=== PATIENT | female | born 1950 | race Caucasian/White ===

== ENCOUNTER → 2020-01-25 | Outpatient (CLI) | payer MEDICARE, MEDICAID ==
[2020-01-25 07:52] LABS: BILIRUBIN,URINE NEGATIVE (NEGATIVE); CLARITY,URINE CLEAR; COLOR,URINE YELLOW; GLUCOSE, URINE (UA) NEGATIVE (NEGATIVE); KETONES,URINE NEGATIVE (NEGATIVE); LEUKOCYTE ESTERASE ,URINE 1+ (NEGATIVE); NITRITE,URINE NEGATIVE (NEGATIVE); PROTEIN,URINE NEGATIVE (NEGATIVE)
[2020-01-25 08:25] LABS: BACTERIA,URINE TRACE /HPF
== END ==
LOC: LAB 07:32
PROVIDERS: ATTEND Thoracic Surgery (Cardiothoracic Vascular Surgery)
DX: Z01.812 Encounter for preprocedural laboratory examination (principal); I65.23 Occlusion and stenosis of bilateral carotid arteries
CPT/HCPCS: 81000

== ENCOUNTER 2020-06-10 00:23 | Emergency (ER) | payer MEDICARE, MEDICAID ==
[~2020-06-10] VITALS: Ht 170 cm; Wt 59.0 kg
--- OUTSIDE RECORDS SUMMARY | 2020-06-10 00:28 | XMS REPORT ---
Author Author Felicia SOLIZ Organization [employer] Address Unknown Phone Unavailable Care Team Providers Care Cytology Manager Name Role Phone BRITTANY SOLIZ CP Unavailable Allergies, Adverse Reactions, Alerts Substance Reaction Event Type N.K.D.A. Info Not Available Non Drug Allergy Problems Problem Type Condition Code Onset Dates Condition Statu s Assessment Rotator cuff injury, left, initial encounter S46.002A Active Medications Medication Code System Code Instructions Start Date End Date Status Dosage Dulcolax Stool Softener [facility] [address] 100 MG Orally Once a day 1 capsule as needed Ibuprofen [facility] [address]-34 800 MG Orally Three times a day Jun 29, 2016 1 tablet Amlodipine Besylate [facility] [address]-45 5 MG Orally Once a day 1 tablet ProAir HFA [facility] [address]-37 108 (90 Base) MCG/ACT Inhalation every 4 hrs 2 puffs as needed Dulera [facility] [address]-72 200-5 MCG/ACT Inhalation Twice a day 2 puffs Spiriva HandiHaler [facility] [address]-87 18 MCG Inhalation not defined Pravastatin Sodium [facility] [address]-63 40 MG Orally Once a day 1 tablet Procedures Procedure Coding System Code Date Office Visit, Est Pt., Level 3 CPT-4 66391 A 2015 Vital Signs Date/Time: Jun 29, 2016 Cardiac Monitoring Heart Rate 102 bpm Weight 163.1 lbs Height 65.5 in BMI 26.73 Index Blood Pressure Diastolic 80 mmHg Blood Pressure Systolic 144 mmHg Results No Known Results Summary Purpose [employer] Submission
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
--- OUTSIDE RECORDS SUMMARY | 2020-06-10 00:28 | XMS REPORT ---
Author Felicia Luke Organization [employer] Address Unknown Phone Unavailable Care Team Providers Care Saw Offbearer Name Role Phone SETH CHEN CP Unavailable Allergies, Adverse Reactions, Alerts Substance Reaction Event Type N.K.D.A. Info Not Available Non Drug Allergy Problems Problem Type Condition Code Onset Dates Condition Statu s Assessment Constipation, unspecified constipation type K59.00 Active Medications Medication Code System Code Instructions Start Date End Date Status Dosage Spiriva HandiHaler [facility] [address]-50 18 MCG Inhalation not defined Dulcolax Stool Softener [facility] [address]65[address] 100 MG Orally Once a day 1 capsule as needed Amlodipine Besylate [facility] [address]-75 5 MG Orally Once a day 1 tablet Dulera [facility] [address]-28 200-5 MCG/ACT Inhalation Twice a day 2 puffs ProAir HFA [facility] [address]-77 108 (90 Base) MCG/ACT Inhalation every 4 hrs 2 puffs as needed Pravastatin Sodium [facility] [address]-76 40 MG Orally Once a day 1 tablet Procedures Procedure Coding System Code Date Office Visit, Est Pt., Level 3 CPT-4 67462 [facility] 2015 Vital Signs Date/Time: June 12, 2016 Cardiac Monitoring Heart Rate 99 bpm Weight 165.1 lbs Height 65.5 in Blood Pressure Diastolic 90 mmHg Blood Pressure Systolic 146 mmHg Results No Known Results Summary Purpose [employer] Submission
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
--- OUTSIDE RECORDS SUMMARY | 2020-06-10 00:28 | XMS REPORT | Continuity of Care Document ---
Author Organization Unknown Address Unknown Phone Unavailable Allergies There is no data. Medications There is no data. Problems Date Dx Coded Attending Type Code Diagnosis Diagnosed By 01/27/2020 AMANDA DOBBS MD, Ot I65. 23 OCCLUSION AND STENOSIS OF BILATERAL TERRY 01/27/2020 AMANDA DOBBS MD, Ot Z01.812 ENCOUNTER FOR PREPROCEDURAL LABORATORY E 02/17/2020 AMANDA DOBBS MD, Ot I65. 23 OCCLUSION AND STENOSIS OF BILATERAL TERRY 02/17/2020 AMANDA DOBBS MD, Ot Z01.812 ENCOUNTER FOR PREPROCEDURAL LABORATORY E Procedures There is no data. Results Test Result Range Complete urinalysis with reflex to cultu re - 01/25/20 07:48 Urine color determination YELLOW NRG Urine clarity determination CLEAR NR G Urine pH measurement by test strip 6.0 5-9 Specific gravity of urine by test strip 1.020 1.016-1.022 Urine protein assay by test strip, semi-quantitative NEGATIVE NEGATIVE Urine glucose detection by automated test strip NE GATIVE NEGATIVE Erythrocytes detection in urine sediment by light micr oscopy NEGATIVE NEGATIVE Urine ketones detection by automated test strip NE GATIVE NEGATIVE Urine nitrite detection by test strip NEGATIVE NEGATIVE Urine total bilirubin detection by test strip NEGA TIVE NEGATIVE Urine urobilinogen measurement by automated test strip (mass/volume) 0.2 mg/dL < = 1.0 Urine leukocyte esterase detection by dipstick 1+ NEGATIVE Automated urine sediment erythrocyte cou nt by microscopy (number/high power field) NONE NRG Automated urine sediment leukocyte count by microscopy (number/high power field) [HPF] NRG Bacteria detection in urine sediment by light microsco py TRACE NRG Squamous epithelial cells detection in u rine sediment by light microscopy 2-5 NRG Crystals detection in urine sediment by light microsco py NONE NRG Casts detection in urine sediment by light microscopy NONE NRG Mucus detection in urine sediment by light microscopy SMALL NRG Complete urinalysis with reflex to culture NO NRG Encounters ACCT No. Visit Date/Time Discharge Status Pt. Type Provider Facility Loc./Unit Complaint [id number] 01/25/2020 07:32:00 020 23:59:59 CLS Outpatient AMANDA DOBBS MD [facility] LAB PREOP CARDIOVASCULAR [id number] 06/10/2020 00:24:[address] Emergency FRANSISCO CLEMENTS, TARA Ortiz [facility] ER SYCOPE
--- OUTSIDE RECORDS SUMMARY | 2020-06-10 00:28 | XMS REPORT ---
Author Author Felicia BILL [facility] Address [address] [place] [address] Care Team Providers Care Service Operator Name Role Phone LANDY ALISON Unavailable PROBLEMS Type Condition ICD9-CM Code KHF09-SZ Code Onset Dates Condition S tatus SNOMED Code Problem Mixed hyperlipidemia E78.2 Active 951730614 Problem Benign essential hypertension I10 Active 8766463 Problem COPD exacerbation J44.1 Active 19 7551773 Problem COPD, severe J44.9 Active 0669787 06 Problem Simple chronic bronchitis J41.0 Acti ve [id number] ALLERGIES No Information ENCOUNTERS Encounter Location Date Diagnosis [facility] [address] [id number] [phone] Jan, [facility] [place] [address] [facility] [address] [id number] [phone] Jan, [facility] [place]SC[place] [address] [facility] [id number], [place] [phone] Jun, [facility] [place] [address] [facility] [id number] [phone] Feb, Bronchitis J40 ; Wheezing R06.2 and Acut e upper respiratory infection, unspecified J06.9 [facility] [address] [facility] [address] [id number][place] [phone] Feb, [facility] [address] [facility] [address] [id number][place] [phone] Feb, COPD exacerbation J44.1 [facility] [address] [facility] [address] [id number][place] [phone] Feb, [facility]ITAL[facility] [address] [id number], [place] [phone] Dec, COPD exacerbation J44.1 [facility] [address] [place] [address] AVE [id number][place] [id number] Dec, COPD exacerbation J44.1 [facility] [address] [place] [address] AVE [id number][place] [phone] Dec, [facility] [address] [id number][place] [id number] Dec, COPD exacerbation J44.1 ; Tobacco abuse Z72.0 ; Tobacco abuse counseling Z71.6 ; Benign essential hypertension I10 ; COPD, severe J44.9 and Mixed hyperlipidemia E78.2 [facility] [address] [place] [address] AVE [id number][place] [id number] Sep, COPD exacerbation J44.1 [facility] [address] [place] [address] AVE [id number][place] [phone] Jun, Rotator cuff injury, left, initial encou nter S46.002A [facility] [address] [id number][place] [id number] May, Constipation, unspecified constipation t ype K59.00 [facility] [address] [id number], [place] [id number] March, Bronchitis J40 and Cough R05 IMMUNIZATIONS No Known Immunizations SOCIAL HISTORY Never Assessed REASON FOR VISIT only PLAN OF CARE VITAL SIGNS MEDICATIONS Unknown [...]
--- OUTSIDE RECORDS SUMMARY | 2020-06-10 00:28 | XMS REPORT ---
Author Author Felicia CONTRERAS Organization [facility] Address Unknown Phone Unavailable Care Team Providers Care Plasterer Journeyman Name Role Phone WALKER CONTRERAS Unavailable Unavailable PROBLEMS Type Condition ICD9-CM Code ZFO49-YV Code Onset Dates Condition S tatus SNOMED Code Problem Mixed hyperlipidemia E78.2 Active 851715479 Problem Benign essential hypertension I10 Active 5061044 Problem COPD exacerbation J44.1 Active 19 6209233 Problem COPD, severe J44.9 Active 0379839 06 Problem Simple chronic bronchitis J41.0 Acti ve [id number] ALLERGIES No Information SOCIAL HISTORY Never Assessed PLAN OF CARE VITAL SIGNS MEDICATIONS Unknown [...]
[2020-06-10] MEDS ORDERED: LACTATED RINGERS 1,000 ML IV ONE (00:44)
[2020-06-10] MEDS ORDERED: LACTATED RINGERS 1,000 ML IV STA (00:45)
[2020-06-10] MEDS ORDERED: ONDANSETRON 4 MG/2 ML (SDV) Z0FRAN IVP ONE (00:45)
[2020-06-10 00:55] LABS: BASOPHILS % (AUTO) 0 % (0-10); EOSINOPHILS # (AUTO) 0.2 10^3/uL (0.0-0.3); EOSINOPHILS % (AUTO) 2 % (0-10); HEMATOCRIT 41 % (35-52); HEMOGLOBIN 14.3 G/DL (11.5-16.0); LYMPHOCYTES # (AUTO) 2.6 X 10^3 (1.0-4.0); LYMPHOCYTES % (AUTO) 28 % (12-44); MEAN CORPUSCULAR HEMOGLOBIN 31 PG (25-34); MEAN CORPUSCULAR HGB CONC 35 G/DL (32-36); MEAN CORPUSCULAR VOLUME 90 FL (80-99); MEAN PLATELET VOLUME 9.2 FL (7.4-10.4); MONOCYTES # (AUTO) 0.7 X 10^3 (0.0-1.0); MONOCYTES % (AUTO) 7 % (0-12); NEUTROPHILS # (AUTO) 5.8 X 10^3 (1.8-7.8); NEUTROPHILS % (AUTO) 63 % (42-75); PLATELET COUNT 269 10^3/uL (130-400); RED CELL DISTRIBUTION WIDTH 12.1 % (10.0-14.5); WHITE BLOOD COUNT 9.2 10^3/uL (4.3-11.0)
[2020-06-10 00:59] LABS: ALBUMIN 3.9 GM/DL (3.2-4.5)
[2020-06-10 01:00] LABS: CHLORIDE 111 MMOL/L (98-107); POTASSIUM 3.5 MMOL/L (3.6-5.0); SODIUM 141 MMOL/L (135-145)
[2020-06-10 01:02] LABS: GLUCOSE 121 MG/DL (70-105); PROTHROMBIN TIME PATIENT 13.3 SEC (12.2-14.7); TOTAL PROTEIN 6.4 GM/DL (6.4-8.2)
[2020-06-10 01:03] LABS: CARBON DIOXIDE 18 MMOL/L (21-32)
[2020-06-10 01:04] LABS: BILIRUBIN,TOTAL 0.8 MG/DL (0.1-1.0)
[2020-06-10 01:05] LABS: ALKALINE PHOSPHATASE 86 U/L (40-136)
[2020-06-10 01:06] LABS: CREATININE SERUM 0.82 MG/DL (0.60-1.30); GFR ESTIMATED > 60
[2020-06-10 01:07] LABS: BUN/CREATININE RATIO 18
[2020-06-10 01:08] LABS: ALANINE AMINOTRANSFERASE 27 U/L (0-55)
--- NOTE | 2020-06-10 01:24 | NUR ---
Pt's , "Shane Butler", called and wants pt transferred to [place]. Leo noted to Dr. Lyon.
--- NOTE | 2020-06-10 01:48 | ED General ---
General Chief Complaint: General Problems/Pain Stated Complaint: SYCOPE Nursing Triage Note: Pt to [facility] via [facility] with c/o mild nausea after "legs gave out and collapsed". 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 Pt denies any pain at this time. Nursing Sepsis Screen: No Definite Risk Source of Information: Patient Exam Limitations: No Limitations History of Present Illness Date Seen by Provider: Jun 10, 2020 Time Seen by Provider: 00:40 Initial Comments Here by EMS with report of acute onset of weakness. Apparently patient was sitting but had to go to the bathroom. She tried to stand up but her legs were weak. Family assisted her to the floor and she was incontinent of urine. Complaining of nausea. Apparently nearly passed out. Does have history of stroke with left-sided residual from Thanksgiving of last year. She is on aspirin and Plavix. She has had a TIA event that was similar to this event. Denies recent illness or fevers. States that she knew she had to go to the bathroom and tried to get up and walk right and that's why she urinated on herself. Currently states that she is feeling better. Does have residual left-sided weakness but states there is nothing different currently going on. No difficulty with speech. No facial droop or paresthesias noted or reported. Last known well time 2300. States back to baseline now except for she still has nausea. Timing/Duration: 1-3 Hours, Changing Over Time Severity: Moderate Associated Systoms: No Chest Pain, No Cough, No Diaphoresis, No Fever/Chills, No Headaches; Nausea/Vomiting; No Shortness of Air; Syncope, Weakness Allergies and Home Medications Allergies Coded Allergies: levofloxacin (Verified Allergy, Unknown, 06/10/20) prednisone (Verified Allergy, Unknown, 06/10/20) Home Medications Cephalexin 500 Mg Tablet, 500 MG PO BID Prescribed by: TARA MOODY on 06/10/20 5898 Patient Home Medication List Home Medication List Reviewed: Yes Review of Systems Review of Systems Constitutional: No chills, No fever; weakness EENTM: no symptoms reported Respiratory: No cough, No short of breath Cardiovascular: No chest pain, No edema; syncope Gastrointestinal: nausea; No vomiting Genitourinary: No dysuria; incontinence Musculoskeletal: muscle weakness Skin: no symptoms reported Psychiatric/Neurological: See HPI; Denies Headache; Pre-Existing Deficit All Other Systems Reviewed Negative Unless Noted: Yes Past Atxlqcu-Gncfep-Vetsor Hx Past Med/Social Hx: Reviewed Nursing Past Med/Soc Hx Patient Social History Alcohol Use: Denies Use Recreational Drug Use: No Smoking Status: Current Everyday Smoker Type Used: Cigarettes 2nd Hand Smoke Exposure: Yes Recent Foreign Travel: No Contact w/Someone Who Travel: No Recent Infectious Disease Expo: No Recent Hopitalizations: No Seasonal Allergies Seasonal Allergies: No Past Medical History Surgeries: Yes Orthopedic Respiratory: Yes Asthma, COPD Cardiac: Yes High Cholesterol, Hypertension Neurological: Yes TIA Genitourinary: No Gastrointestinal: Yes Gastroesophageal Reflux Musculoskeletal: No Endocrine: No HEENT: No Cancer: Yes (right kidney - 2 mm tumor ) Kidney Did You Recieve Any Treatments: No Psychosocial: No Integumentary: No Blood Disorders: No Family Medical History Reviewed Nursing Family Hx Physical Exam Vital Signs Vital Signs - First Documented 06/10/20 06/10/20 00:28 00:53 Temp 36.6 Pulse 79 Resp 18 B/P (MAP) 97/44 (61) Pulse Ox 93 O2 Delivery Room Air O2 Flow Rate 1.00 Capillary Refill : Less Than 3 Seconds Height, Weight, BMI Height: '" Weight: lbs. oz. kg; 20.00 BMI Method: General Appearance: No Apparent Distress, Chronically ill HEENT: PERRL/EOMI, Pharynx Normal Neck: Normal Inspection, Non Tender, Supple Respiratory: Lungs Clear, Normal Breath Sounds Cardiovascular: Regular Rate, Rhythm, No Murmur Gastrointestinal: Non Tender, Soft Back: Normal Inspection, No CVA Tenderness, No Vertebral Tenderness Extremity: Normal Inspection, Non Tender Neurologic/Psychiatric: Alert, Oriented x3, Motor Weakness (mild left-sided weakness versus the right to upper and lower extremity.); No Sensory Deficit; Other (no facial droop) Skin: Normal Color, Warm/Dry Focused Exam Lactate Level 06/10/20 00:36: Lactic Acid Level 0.89 Lactic Acid Level Laboratory Tests Test 06/10/20 00:36 Lactic Acid Level 0.89 MMOL/L (0.50-2.00) Progress/Results/Core Measures Suspected Sepsis Recent Fever Within 48 Hours: No Infection Criteria Present: None New/Unexplained Altered Menta: No Sepsis Screen: No Definite Risk SIRS Temperature: Pulse: 79 Respiratory Rate: 18 Laboratory Tests 7/18/20 00:36: White Blood Count 9.2 Blood Pressure 97 /44 Mean: 61 06/10/20 00:36: Lactic Acid Level 0.89 Laboratory Tests 06/10/20 00:36: Creatinine 0.82, INR Comment 1.0, Platelet Count 269, Total Bilirubin 0.8 Results/Orders Lab Results Laboratory Tests Test 06/10/20 00:36 06/10/20 02:49 Range/Units White Blood Count 9.2 4.3-11.0 10^3/uL Red Blood Count 4.55 4.35-5.85 10^6/uL Hemoglobin 14.3 11.5-16.0 G/DL Hematocrit 41 35-52 % Mean Corpuscular Volume 90 80-99 FL Mean Corpuscular Hemoglobin 31 25-34 PG Mean Corpuscular Hemoglobin Concent 35 32-36 G/DL Red Cell Distribution Width 12.1 10.0-14.5 % Platelet Count 269 130-400 10^3/uL Mean Platelet Volume 9.2 7.4-10.4 FL Neutrophils (%) (Auto) 63 42-75 % Lymphocytes (%) (Auto) 28 12-44 % Monocytes (%) (Auto) 7 0-12 % Eosinophils (%) (Auto) 2 0-10 % Basophils (%) (Auto) 0 0-10 % Neutrophils # (Auto) 5.8 1.8-7.8 X 10^3 Lymphocytes # (Auto) 2.6 1.0-4.0 X 10^3 Monocytes # (Auto) 0.7 0.0-1.0 X 10^3 Eosinophils # (Auto) 0.2 0.0-0.3 10^3/uL Basophils # (Auto) 0.0 0.0-0.1 10^3/uL Prothrombin Time 13.3 12.2-14.7 SEC INR Comment 1.0 0.8-1.4 Activated Partial Thromboplast Time 30 24-35 SEC Sodium Level 141 135-145 MMOL/L Potassium Level 3.5 L 3.6-5.0 MMOL/L Chloride Level 111 H 98-107 MMOL/L Carbon Dioxide Level 18 L 21-32 MMOL/L Anion Gap 12 5-14 MMOL/L Blood Urea Nitrogen 15 7-18 MG/DL Creatinine 0.82 0.60-1.30 MG/DL Estimat Glomerular Filtration Rate > 60 BUN/Creatinine Ratio 18 Glucose Level 121 H 70-105 MG/DL Lactic Acid Level 0.89 0.50-2.00 MMOL/L Calcium Level 9.0 8.5-10.1 MG/DL Corrected Calcium 9.1 8.5-10.1 MG/DL Total Bilirubin 0.8 0.1-1.0 MG/DL Aspartate Amino Transf (AST/SGOT) 24 5-34 U/L Alanine Aminotransferase (ALT/SGPT) 27 0-55 U/L Alkaline Phosphatase 86 40-136 U/L Troponin I < 0.028 <0.028 NG/ML Total Protein 6.4 6.4-8.2 GM/DL Albumin 3.9 3.2-4.5 GM/DL Urine Color YELLOW Urine Clarity CLEAR Urine pH 6.0 5-9 Urine Specific [place] 1.020 1.016-1.022 Urine Protein NEGATIVE NEGATIVE Urine Glucose (UA) NEGATIVE NEGATIVE Urine Ketones NEGATIVE NEGATIVE Urine Nitrite NEGATIVE NEGATIVE Urine Bilirubin NEGATIVE NEGATIVE Urine Urobilinogen 0.2 < = 1.0 MG/DL Urine Leukocyte Esterase 1+ H NEGATIVE Urine RBC (Auto) NEGATIVE NEGATIVE Urine RBC NONE /HPF Urine WBC 10-25 H /HPF Urine Squamous Epithelial Cells 0-2 /HPF Urine Crystals NONE /LPF Urine Bacteria FEW H /HPF Urine Casts PRESENT /LPF Urine Hyaline Casts 0-2 H /LPF Urine Mucus SMALL H /LPF Urine Culture Indicated YES My Orders Orders - TARA MOODY MD Lactated Ringers (Lr 1000 Ml Iv Solution (06/10/20 00:44) Ondansetron Injection (Zofran Injectio (06/10/20 00:45) Lactated Ringers (Lr 1000 Ml Iv Solution (06/10/20 00:45) Cbc With Automated Diff (06/10/20 00:45) Comprehensive Metabolic Panel (06/10/20 00:45) Blood Culture (06/10/20 00:45) Sputum Culture (06/10/20 00:45) Urinalysis (06/10/20 00:45) Urine Culture (06/10/20 00:45) Protime With Inr (06/10/20 00:45) Partial Thromboplastin Time (06/10/20 00:45) Chest 1 View, Ap/Pa Only (06/10/20 00:45) Ed Iv/Invasive Line Start (06/10/20 00:45) Ekg Tracing (06/10/20 00:45) Troponin I (06/10/20 00:45) Vital Signs Adult Sepsis Patie Q15M (06/10/20 00:45) O2 (06/10/20 00:45) Remove Rings In Anticipation O (06/10/20 00:45) Lactic Acid Analyzer (06/10/20 00:45) Ct Head Wo-R/O Stroke (06/10/20 00:45) Dysphagia Screening Tool (06/10/20 00:45) Urine Culture (06/10/20 02:49) Ceftriaxone For Iv Use (Rocephin For I (06/10/20 03:59) Ceftriaxone For Iv Use (Rocephin For I (06/10/20 03:59) Water (Sterile) For Injection (Sterile W (06/10/20 03:59) Medications Given in ED Current Medications Medications Dose Ordered Sig/Kirstin Route Start Time Stop Time Status Last Admin Dose Admin Ondansetron HCl 4 mg ONCE ONCE IVP 06/10/20 00:45 06/10/20 00:49 DC 06/10/20 00:51 4 MG Vital Signs/I&O 06/10/20 06/10/20 00:28 00:53 Temp 36.6 Pulse 79 Resp 18 B/P (MAP) 97/44 (61) Pulse Ox 93 96 O2 Delivery Room Air Nasal Cannula O2 Flow Rate 1.00 Capillary Refill : Less Than 3 Seconds Blood Pressure Mean: 61 Progress Note : Progress Note Seen and evaluated. Initial BP soft. IV, labs, blood cultures and lactic acid, UA and EKG ordered under sepsis protocol. We will also additionally get CT of the head without contrast and dysphagia screen for stroke evaluation. Patient has minimal deficits and currently at baseline. No indication for TPA given current findings. The patient seems to be more near syncopal event stroke but given declined state we will check for infectious etiology as well. Monitor patient. 0400: Rocephin 1 g IV for urinary tract infection. Patient overall is feeling better with normal vital signs. She feels like she can go home and would like to go home. I believe that is reasonable. We will continue outpatient antibiotics. updated. Discharged home with return precautions. Patient verbalize understanding instructions and agreement with plan. ECG Initial ECG Impression Date: Jun 10, 2020 Initial ECG Impression Time: 00:47 Initial ECG Rhythm: Normal Sinus Comment Sinus rhythm with normal axis. No evidence of ST elevation AK. No previous available for comparison. Interpreted by me. Diagnostic Imaging Diagonstic Imaging: CT Plain Films/CT/US/NM/MRI: head Comments CT head shows right temporal parietal region encephalomalacia. No acute findings. Reviewed: [facility]ed [facility] Dep[facility]ure Impression Primary Impression: Urinary tract infection Qualified Codes: N30.00 - Acute cystitis without hematuria Additional Impression: Near syncope Disposition: HOME, SELF-CARE Condition: Stable Departure-Patient Inst. Decision time for Depature: 04:14 Referrals: NO,LOCAL PHYSICIAN (PCP/Family) Primary Care Physician Patient Instructions: Urinary Tract Infection, Adult (DC), Syncope (Fainting) (DC) Add. Discharge Instructions: All discharge instructions reviewed with patient and/or family. Voiced understanding. Continue home medications as previously prescribed. Take medications as directed. Drink plenty of fluids. Follow-up with your Dr. in a few days for recheck. Return for worsening, fever, vomiting, weakness, breathing problems or other concerns as needed. Scripts Cephalexin (Cephalexin) 500 Mg Tablet 500 MG PO BID, #12 TAB 0 Refills Prov: TARA MOODY MD 06/10/20 TARA MOODY MD Jun 10, 2020 01:48
--- NOTE | 2020-06-10 02:44 | NUR ---
PATIENTS "" HALLIE CALLS TO GET AN UPDATE. THIS RN EXPLAINS WE ARE WAITING ON TEST RESULTS TO COME BACK AND WE WILL HAPPILY CALL AND UP DATE HIM SOON POSSIBLE. 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 THIS RN NICELY EXPLAINED SINCE THE PATIENT IS ALERT AND ORIENTED X4 HIS POWER OF ATTOURNEY WOULD NOT APPLY UNLESS SHE IS UNABLE TO SPEAK FOR HERSELF BUT WILL WILL BE HAPPY TO CALL HIM SOON TESTING IS FINISHED. PATIENT IS UPDATED OF CONVERSATION WITH HALLIE.
[2020-06-10 03:08] LABS: BILIRUBIN,URINE NEGATIVE (NEGATIVE); CLARITY,URINE CLEAR; COLOR,URINE YELLOW; GLUCOSE, URINE (UA) NEGATIVE (NEGATIVE); KETONES,URINE NEGATIVE (NEGATIVE); LEUKOCYTE ESTERASE ,URINE 1+ (NEGATIVE); NITRITE,URINE NEGATIVE (NEGATIVE); PROTEIN,URINE NEGATIVE (NEGATIVE)
[2020-06-10 03:38] LABS: BACTERIA,URINE FEW /HPF; SQUAMOUS EPITHELIAL CELL,UR 0-2 /HPF
[2020-06-10 03:39] LABS: HYALINE CASTS, URINE 0-2 /LPF
[2020-06-10] MEDS ORDERED: cefTRIAXone FOR IV USE 1,000 MG in WATER (STERILE) FOR INJECTION 10 ML IV STA (03:59)
[2020-06-10] MEDS ORDERED: cefTRIAXone 1,000 MG IV (ROCEPHIN) VIAL ONE (03:59)
[2020-06-10] MEDS ORDERED: WATER (STERILE) FOR INJECTION 10 ML ONE (03:59)
[2020-06-10] MEDS ORDERED: CEPH500T PO (04:17)
[2020-06-10 04:26] VITALS: BP 120/86
--- NOTE | 2020-06-10 06:57 | Diagnostic Imaging Report ---
INDICATION: Mild nausea. History of stroke.. TECHNIQUE: Single view chest 1:17 AM. CORRELATION STUDY: None FINDINGS: The heart size, mediastinal configuration and pulmonary vascularity are within normal limits. The lungs are clear with no consolidating infiltrate. There is no significant effusion or pneumothorax. IMPRESSION: 1. Negative appearing portable chest. Dictated by: Dictated on workstation # [id number]
--- NOTE | 2020-06-10 07:05 | Diagnostic Imaging Report ---
PROCEDURE: CT head wo r/o stroke. TECHNIQUE: Multiple contiguous axial images were obtained through the brain without the use of intravenous contrast. Auto Exposure Controls were utilized during the CT exam to meet ALARA standards for radiation dose reduction. INDICATION: Weakness of the legs, nausea. History of stroke. COMPARISON: None available. FINDINGS: There is a large region of chronic encephalomalacia in the right temporal parietal region from old right MCA territorial infarct. This infarct involves the internal capsule and caudate nucleus on the right. No hyperdense hemorrhage or space-occupying mass. No features of acute territorial infarct by CT. No acute calvarial abnormality. Paranasal sinuses and mastoid air cells are clear. IMPRESSION: 1. No features of acute intracranial process by CT. 2. Old right MCA infarct involving the temporal and parietal lobes. 3. Findings are in agreement with the preliminary report. Dictated by: Dictated on workstation # [id number]
== END 2020-06-10 04:26 | disposition home or self-care (01) ==
LOC: EDUNIT# 00:23 → ER 00:24
DX: N39.0 Urinary tract infection, site not specified (principal); R55 Syncope and collapse; F17.210 Nicotine dependence, cigarettes, uncomplicated; Z79.02 Long term (current) use of antithrombotics/antiplatelets; Z79.82 Long term (current) use of aspirin; Z88.1 Allergy status to other antibiotic agents; Z88.8 Allergy status to other drugs, medicaments and biological substances; Z86.73 Personal history of transient ischemic attack (TIA), and cerebral infarction without residual deficits; Z85.528 Personal history of other malignant neoplasm of kidney
CPT/HCPCS: 36415; 70450; 71045; 80053; 81000; 83605; 84484; 85025; 85610; 85730; 87040; 87088; 93005

== ENCOUNTER 2021-05-04 13:10 | Emergency (ER) | payer MEDICAID, MEDICARE ==
[~2021-05-04] VITALS: Ht 170.2 cm; Wt 242.5 kg
[~2021-05-04 13:10] MED LIST: CEPH500T PO
[2021-05-04] MEDS ORDERED: ONDANSETRON 4 MG/2 ML (SDV) Z0FRAN IVP ONE (15:30)
[2021-05-04] MEDS ORDERED: LACTATED RINGERS 1,000 ML IV ONE (15:30)
[2021-05-04 16:33] LABS: BASOPHILS % (AUTO) 1 % (0-10); EOSINOPHILS # (AUTO) 0.1 10^3/uL (0.0-0.3); EOSINOPHILS % (AUTO) 2 % (0-10); HEMATOCRIT 43 % (35-52); HEMOGLOBIN 14.5 g/dL (11.5-16.0); LYMPHOCYTES # (AUTO) 1.9 10^3/uL (1.0-4.0); LYMPHOCYTES % (AUTO) 29 % (12-44); MEAN CORPUSCULAR HEMOGLOBIN 33 pg (25-34); MEAN CORPUSCULAR HGB CONC 34 g/dL (32-36); MEAN CORPUSCULAR VOLUME 97 fL (80-99); MEAN PLATELET VOLUME 8.9 fL (9.0-12.2); MONOCYTES # (AUTO) 0.6 10^3/uL (0.0-1.0); MONOCYTES % (AUTO) 9 % (0-12); NEUTROPHILS % (AUTO) 59 % (42-75); PLATELET COUNT 313 10^3/uL (130-400); WHITE BLOOD COUNT 6.7 10^3/uL (4.3-11.0)
--- NOTE | 2021-05-04 16:33 | ED GI ---
General Chief Complaint: Abdominal/GI Problems Stated Complaint: EATING LITTLE / N/D Nursing Triage Note: pt reports n/d x4 days. Pt has not been eating due to this. Denies cough or fever Sepsis Screen: No Definite Risk Source of Information: Patient Exam Limitations: No Limitations History of Present Illness Date Seen by Provider: May 04, 2021 Time Seen by Provider: 15:20 Initial Comments This is 70-year-old woman presents to the emergency room with complaints of 4 days of diarrhea. She has had nausea without vomiting. She describes no blood in her stools. She is afebrile and denies abdominal pain. She is concerned about her hydration status. She is under active surveillance for renal cancer by Dr. Villanueva. Dr. Sparks is her PCP. Allergies and Home Medications Allergies Coded Allergies: levofloxacin (Verified Allergy, Unknown, 06/10/20) prednisone (Verified Allergy, Unknown, 06/10/20) Home Medications Cephalexin 500 Mg Tablet, 500 MG PO BID Prescribed by: TARA MOODY on 06/10/20 0417 Lactobacillus Acidophilus 1 Each Capsule, 1 EACH PO TID Prescribed by: JESSI GOMEZ on 05/04/21 1715 Ondansetron 4 Mg Tab.rapdis, 4 MG SL Q4H PRN for NAUSEA/VOMITING Prescribed by: JESSI GOMEZ on 05/04/21 171 Patient Home Medication List Home Medication List Reviewed: Yes Review of Systems Review of Systems Constitutional: no symptoms reported EENTM: No Symptoms Reported Respiratory: No Symptoms Reported Cardiovascular: No Symptoms Reported Gastrointestinal: See HPI Genitourinary: See HPI Musculoskeletal: no symptoms reported Skin: no symptoms reported Psychiatric/Neurological: No Symptoms Reported Endocrine: No Symptoms Reported Hematologic/Lymphatic: No Symptoms Reported Past Qrwaezk-Qqbdor-Rguqzl Hx Past Med/Social Hx: Reviewed Nursing Past Med/Soc Hx Patient Social History Alcohol Use: Denies Use Smoking Status: Current Everyday Smoker Type Used: Cigarettes 2nd Hand Smoke Exposure: Yes Recent Infectious Disease Expo: No Recent Hopitalizations: No Seasonal Allergies Seasonal Allergies: No Past Medical History Surgeries: Yes Orthopedic Respiratory: Yes Asthma, COPD Cardiac: Yes High Cholesterol, Hypertension Neurological: Yes TIA Genitourinary: No Gastrointestinal: Yes Gastroesophageal Reflux Musculoskeletal: No Endocrine: No HEENT: No Cancer: Yes (right kidney - 2 mm tumor ) Kidney Did You Recieve Any Treatments: No Psychosocial: No Integumentary: No Blood Disorders: No Physical Exam Vital Signs Vital Signs - First Documented 05/04/21 05/04/21 13:46 17:27 Temp 36.3 Pulse 108 Resp 20 B/P (MAP) 127/77 (94) Pulse Ox 94 O2 Delivery Room Air Capillary Refill : Less Than 3 Seconds Height/Weight/BMI Height: '" Weight: lbs. oz. kg; 83.00 BMI Method: General Appearance: WD/WN, no apparent distress, thin HEENT: PERRL/EOMI, normal ENT inspection, other (Mucous membranes somewhat dry) Neck: normal inspection Respiratory: lungs clear, normal breath sounds, no respiratory distress, no accessory muscle use Cardiovascular: regular rate, rhythm, no edema, no murmur Gastrointestinal: normal bowel sounds, non tender, soft Extremities: normal inspection, no pedal edema Neurologic/Psychiatric: grand scribe II-XII nml as tested, no motor/sensory deficits, alert, normal mood/affect, oriented x 3 Skin: normal color, warm/dry Progress/Results/Core Measures Results/Orders Lab Results Laboratory Tests Test 05/04/21 16:20 Range/Units White Blood Count 6.7 4.3-11.0 10^3/uL Red Blood Count 4.46 3.80-5.11 10^6/uL Hemoglobin 14.5 11.5-16.0 g/dL Hematocrit 43 35-52 % Mean Corpuscular Volume 97 80-99 fL Mean Corpuscular Hemoglobin 33 25-34 pg Mean Corpuscular Hemoglobin Concent 34 32-36 g/dL Red Cell Distribution Width 12.7 10.0-14.5 % Platelet Count 313 130-400 10^3/uL Mean Platelet Volume 8.9 L 9.0-12.2 fL Immature Granulocyte % (Auto) 0 % Neutrophils (%) (Auto) 59 42-75 % Lymphocytes (%) (Auto) 29 12-44 % Monocytes (%) (Auto) 9 0-12 % Eosinophils (%) (Auto) 2 0-10 % Basophils (%) (Auto) 1 0-10 % Neutrophils # (Auto) 4.0 1.8-7.8 10^3/uL Lymphocytes # (Auto) 1.9 1.0-4.0 10^3/uL Monocytes # (Auto) 0.6 0.0-1.0 10^3/uL Eosinophils # (Auto) 0.1 0.0-0.3 10^3/uL Basophils # (Auto) 0.0 0.0-0.1 10^3/uL Immature Granulocyte # (Auto) 0.0 0.0-0.1 10^3/uL Sodium Level 141 135-145 MMOL/L Potassium Level 3.0 L 3.6-5.0 MMOL/L Chloride Level 104 98-107 MMOL/L Carbon Dioxide Level 23 21-32 MMOL/L Anion Gap 14 5-14 MMOL/L Blood Urea Nitrogen 7 7-18 MG/DL Creatinine 0.65 0.60-1.30 MG/DL Estimat Glomerular Filtration Rate > 60 BUN/Creatinine Ratio 11 Glucose Level 83 70-105 MG/DL Calcium Level 9.0 8.5-10.1 MG/DL Corrected Calcium 9.4 8.5-10.1 MG/DL Magnesium Level 1.8 1.6-2.4 MG/DL Total Bilirubin 0.8 0.1-1.0 MG/DL Aspartate Amino Transf (AST/SGOT) 19 5-34 U/L Alanine Aminotransferase (ALT/SGPT) 15 0-55 U/L Alkaline Phosphatase 73 40-136 U/L Total Protein 6.3 L 6.4-8.2 GM/DL Albumin 3.5 3.2-4.5 GM/DL My Orders Orders - JESSI GRIMALDO MD Cbc With Automated Diff (05/04/21 15:19) Comprehensive Metabolic Panel (05/04/21 15:19) Magnesium (05/04/21 15:19) Ed Iv/Invasive Line Start (05/04/21 15:19) Lactated Ringers (Lr 1000 Ml Iv Solution (05/04/21 15:30) Ondansetron Injection (Zofran Injectio (05/04/21 15:30) Potassium Chloride (Tablet) (Klor Con Ta (05/04/21 17:15) Medications Given in ED Current Medications Medications Dose Ordered Sig/Kirstin Route Start Time Stop Time Status Last Admin Dose Admin Lactated Ringer's 1,000 ml @ 0 mls/hr Q0M ONCE IV 05/04/21 15:30 05/04/21 15:31 DC 6/11/21 16:20 1,000 MLS/HR Ondansetron HCl 8 mg ONCE ONCE IVP 05/04/21 15:30 05/04/21 15:31 DC 05/04/21 16:19 8 MG Potassium Chloride 40 meq ONCE ONCE PO 05/04/21 17:15 05/04/21 17:16 DC 05/04/21 17:24 40 MEQ Vital Signs/I&O 05/04/21 05/04/21 13:46 17:27 Temp 36.3 36.3 Pulse 108 108 Resp 20 20 B/P (MAP) 127/77 (94) 127/77 (94) Pulse Ox 94 94 O2 Delivery Room Air Blood Pressure Mean: 94 Progress Progress Note #1: Time: 16:33 Progress Note Patient was seen and examined. Labs are pending. A liter of IV fluid has been ordered along with Zofran. We are checking her electrolytes and renal function as patient feels she is becoming dry. Progress Note #2: Progress Note Patient received a liter of LR. She was found to be hypokalemic. Potassium was replaced orally. She reports having a prescription for potassium that she has not yet started because the oral potassium causes nausea. She will start this tomorrow. I prescribed Zofran to help with her nausea. See discharge instru ctions for further discussion. Departure Impression Primary Impression: Diarrhea Qualified Codes: R19.7 - Diarrhea, unspecified Additional Impression: Hypokalemia Disposition: 01 HOME, SELF-CARE Condition: Improved Departure-Patient Inst. Decision time for Depature: 17:12 Referrals: NO,LOCAL PHYSICIAN (PCP/Family) Primary Care Physician Patient Instructions: Diarrhea in Adolescents and Adults, Hypokalemia Add. Discharge Instructions: Drink plenty of clear liquids. Gradually advance your diet with small cesar tities of bland food as tolerated. Avoid dairy products or fatty or greasy foods until your diarrhea has resolved for at least 48 hours. Start your potassium prescription as previously directed. Take with food to avoid stomach upset. You may also use the nausea medication (the Zofran prescribed from the ER) shortly before taking potassium to help prevent the nausea. You may use Imodium [id number] sparingly to treat your diarrhea. Be careful not to overuse Imodium as it may cause constipation. Call with questions or concerns. Return to the emergency room if you have worsening symptoms. Please follow-up with your primary care provider early next week. The probiotics prescribed may also help improve your intestinal health and improve the diarrhea. All discharge instructions reviewed with patient and/or family. Voiced understanding. Scripts Lactobacillus Acidophilus (Probiotic) 1 Each Capsule 1 EACH PO TID, #30 CAP Prov: JESSI GRIMALDO MD 05/04/21 Ondansetron (Ondansetron Odt) 4 Mg Tab.rapdis 4 MG SL Q4H PRN for NAUSEA/VOMITING, #10 TAB Prov: JESSI GRIMALDO MD 05/04/21 Copy Copies To 1: ANGELA SPARKS JOSHUA T MD May 04, 2021 16:33
[2021-05-04 16:47] LABS: ALBUMIN 3.5 GM/DL (3.2-4.5); CHLORIDE 104 MMOL/L (98-107); SODIUM 141 MMOL/L (135-145)
[2021-05-04 16:49] LABS: GLUCOSE 83 MG/DL (70-105); TOTAL PROTEIN 6.3 GM/DL (6.4-8.2)
[2021-05-04 16:50] LABS: CARBON DIOXIDE 23 MMOL/L (21-32)
[2021-05-04 16:51] LABS: BILIRUBIN,TOTAL 0.8 MG/DL (0.1-1.0)
[2021-05-04 16:53] LABS: ALKALINE PHOSPHATASE 73 U/L (40-136); CREATININE SERUM 0.65 MG/DL (0.60-1.30); GFR ESTIMATED > 60
[2021-05-04 16:54] LABS: BUN/CREATININE RATIO 11
[2021-05-04 16:55] LABS: MAGNESIUM 1.8 MG/DL (1.6-2.4)
[2021-05-04 16:56] LABS: ALANINE AMINOTRANSFERASE 15 U/L (0-55)
[2021-05-04] MEDS ORDERED: KCL 10 MEQ TAB (MICRO K) PO ONE (17:15)
[2021-05-04] MEDS ORDERED: LACT1CAP62 PO (17:15)
[2021-05-04] MEDS ORDERED: ONDA4TAB11 SL (17:15)
[2021-05-04 17:27] VITALS: BP 127/77
== END 2021-05-04 17:27 | disposition home or self-care (01) ==
LOC: EDUNIT# 13:10 → ER 13:12
DX: R19.7 Diarrhea, unspecified (principal); E87.6 Hypokalemia; J44.9 Chronic obstructive pulmonary disease, unspecified; I10 Essential (primary) hypertension; F17.210 Nicotine dependence, cigarettes, uncomplicated; Z86.73 Personal history of transient ischemic attack (TIA), and cerebral infarction without residual deficits
CPT/HCPCS: 36415; 80053; 83735; 85025